=== PATIENT | female | born 1970 | race Caucasian/White ===

== ENCOUNTER 2022-12-14 08:03 | Outpatient (CLI) | payer OTHER, SELFPAY ==
[2022-12-14 09:13] LABS: Chloride* 105 mmol/L (96-114); Potassium* 4.4 mmol/L (3.6-5.1); Sodium* 143 mmol/L (135-149)
[2022-12-14 09:15] LABS: Cholesterol* 240 mg/dL (90-199)
[2022-12-14 09:16] LABS: Blood Urea Nitrogen* 18 mg/dL (7-30); Carbon Dioxide* 32 mmol/L (20-32); Creatinine* 0.5 mg/dL (0.5-1.5); Estimated Glomerular Filt Rate 112 ml/min; Glucose* 115 mg/dL (60-115); Triglycerides* 226 mg/dL (40-149)
[2022-12-14 09:17] LABS: Calcium* 10.1 mg/dL (8.4-10.6); HDL Cholesterol* 89 mg/dL (>=50); LDL Cholesterol Calculated 106 mg/dL (<100)
== END 2022-12-14 08:04 | disposition home or self-care (01) ==
PROVIDERS: PCP Internal Medicine; Visit Provider Internal Medicine
DX: I10 Essential (primary) hypertension (principal); E78.5 Hyperlipidemia, unspecified
CPT/HCPCS: 80048; 80061

== ENCOUNTER 2023-03-01 07:07 | Outpatient (CLI) | payer OTHER, SELFPAY | END 2023-03-01 07:08 | disposition home or self-care (01) | LOC: INJ CL 07:08 | PROVIDERS: PCP Internal Medicine; Visit Provider Family Medicine | DX: M47.816 Spondylosis without myelopathy or radiculopathy, lumbar region (principal) | CPT/HCPCS: 64493; J0702; Q9966 ==

== ENCOUNTER 2024-02-03 07:35 | Outpatient (CLI) | payer OTHER, SELFPAY | END 2024-02-03 07:36 | disposition home or self-care (01) | LOC: NFLDREF 13:26 | PROVIDERS: PCP Internal Medicine; Referring Provider Internal Medicine; Visit Provider Internal Medicine | DX: E78.5 Hyperlipidemia, unspecified (principal); I10 Essential (primary) hypertension; R73.03 Prediabetes | CPT/HCPCS: 80048; 80061 ==

== ENCOUNTER 2024-11-19 08:24 | Outpatient (CLI) | payer OTHER, SELFPAY ==
--- NOTE | 2024-11-19 09:49 | P.ANES_ITS ---
Anesthesia Charges Start Date/Time Anesthesia Start Date: 11/19/24 Anesthesia Start Time: 09:25 Stop Date/Time Anesthesia Stop Date: 11/19/24 Anesthesia Stop Time: 09:47 Coding CPT Codes CPT Codes: TYREE LWR INTST SCR COLSC - [id number] ([id number]) P2 - PATIENT W/MILD SYST DISEASE, QX - SUIT ATTENDANT SVC W/ MD MED DIRECTION, QK - ACID CUTTER 2-4 CNCRNT ANES PROC
--- NOTE | 2024-11-19 09:49 | W.ANESCHARGE ---
Anesthesia Charges Start Date/Time Anesthesia Start Date: 11/19/24 Anesthesia Start Time: 09:25 Stop Date/Time Anesthesia Stop Date: 11/19/24 Anesthesia Stop Time: 09:47 Coding CPT Codes CPT Codes: TYREE LWR INTST SCR COLSC - 21921 ([id number]) P2 - PATIENT W/MILD SYST DISEASE, QX - PREVENTATIVE MAINTENANCE TECHNICIAN SVC W/ MD MED DIRECTION, QK - STEREO EQUIPMENT SALESPERSON 2-4 CNCRNT ANES PROC
--- NOTE | 2024-11-19 10:10 | P.ANES_ITS ---
Anesthesia Charges Start Date/Time Anesthesia Start Date: 11/19/24 Anesthesia Start Time: 09:25 Stop Date/Time Anesthesia Stop Date: 11/19/24 Anesthesia Stop Time: 09:47 Coding CPT Codes CPT Codes: TYREE LWR INTST SCR COLSC - [id number] ([id number]) QK - CLIP LOADING MACHINE FEEDER 2-4 CNCRNT TYREE PROC, QX - HEADER SETUP OPERATOR SVC W/ MD MED DIRECTION, P2 - PATIENT W/MILD SYST DISEASE
--- NOTE | 2024-11-19 10:10 | W.ANESCHARGE ---
Anesthesia Charges Start Date/Time Anesthesia Start Date: 11/19/24 Anesthesia Start Time: 09:25 Stop Date/Time Anesthesia Stop Date: 11/19/24 Anesthesia Stop Time: 09:47 Coding CPT Codes CPT Codes: TYREE LWR INTST SCR COLSC - [id number] ([id number]) QK - GRAVITY PROSPECTING OPERATOR 2-4 CNCRNT TYREE PROC, QX - SAFETY NET MAKER SVC W/ MD MED DIRECTION, P2 - PATIENT W/MILD SYST DISEASE
== END 2024-11-19 08:25 | disposition home or self-care (01) ==
LOC: OP CLINIC 08:24
PROVIDERS: PCP Internal Medicine; Visit Provider Internal Medicine
DX: Z12.11 Encounter for screening for malignant neoplasm of colon (principal); Z12.12 Encounter for screening for malignant neoplasm of rectum
CPT/HCPCS: 00812; 45378; J2704

== ENCOUNTER 2025-01-15 14:31 | Outpatient (CLI) | payer OTHER, SELFPAY ==
--- NOTE | 2025-01-15 14:40 | CRLHL7_ITS ---
For Patients: As a result of the Century Cures Act, medical imaging exams and procedure reports are released immediately into your electronic medical record. You may view this report before your referring provider. If you have questions, please contact your health care provider. BILATERAL SCREENING MAMMOGRAM WITH COMPUTER-AIDED DETECTION AND TOMOSYNTHESIS TECHNIQUE: CC and MLO views were obtained. These mammographic images have been obtained using full-field digital technique. These mammographic images were interpreted with the benefit of computer-aided detection. Breast Tomosynthesis was used in this interpretation. COMPARISON FILM: 02/01/19, 01/27/18, 01/05/17 CAD only. FINDINGS: There are scattered areas of fibroglandular density. IMPRESSION: There is no radiographic evidence for malignancy. ASSESSMENT: BI-RADS Category 1: Negative RECOMMENDATION: Routine screening mammogram in 1 year. A lay language report of this examination will be provided to the patient. Angelito Astudillo M.D. Diagnostic Radiologist [email or web address] SP/Dictated by: Angelito Astudillo MD @ 01/16/2025 1:19:00 PM (Electronically Signed)
== END 2025-01-15 14:32 | disposition home or self-care (01) ==
LOC: MAMMO 14:31
PROVIDERS: PCP Internal Medicine; Visit Provider Internal Medicine
DX: Z12.31 Encounter for screening mammogram for malignant neoplasm of breast (principal)
CPT/HCPCS: 77063; 77067

== ENCOUNTER 2025-03-21 07:58 | Outpatient (CLI) | payer OTHER, SELFPAY | END 2025-03-21 07:59 | disposition home or self-care (01) | LOC: NFLDREF 03-28 22:13 | PROVIDERS: PCP Internal Medicine; Referring Provider Internal Medicine; Visit Provider Internal Medicine | DX: E78.5 Hyperlipidemia, unspecified (principal); R73.03 Prediabetes; I10 Essential (primary) hypertension | CPT/HCPCS: 80048; 80061 ==